=== PATIENT | male | born 1950 | race Caucasian/White ===

== ENCOUNTER 2018-02-12 00:57 | Inpatient (IN) | payer BC, MEDICARE ==
[2018-02-11 15:52] LABS: INR 1.02
[~2018-02-12] VITALS: Ht 188 cm; Wt 80.3 kg
[2018-02-12] VITALS (13 sets, daily range): BP systolic 123–151; BP diastolic 63–91
[~2018-02-12 00:57] MED LIST: KRIL500C2 PO; LACT1CAP6 PO; MULT1CAP59 PO; RUTI1TAB3 PO; TAMS0.4C25 PO
[2018-02-12] MEDS ORDERED: ceFAZolin(*) 2GM/D5W 50ML 50 ML IVPB ONE (08:55)
[2018-02-12] MEDS ORDERED: NORMOSOL R SOLN(*) 1000 ML BAG 1,000 ML IV PRN ×2 (08:55→11:25)
[2018-02-12] MEDS ORDERED: CELECOXIB 200 MG CAP PO ONE (08:55)
[2018-02-12] MEDS ORDERED: FAMOTIDINE 20 MG TAB PO ONE (08:55)
[2018-02-12] MEDS ORDERED: MIDAZOLAM 2 MG/2 ML VIAL IVP PRN (08:55)
[2018-02-12] MEDS ORDERED: ROPIVACAINE 0.2% 400 MG/200ML 250 ML CONINFUS ONE (08:55)
[2018-02-12] MEDS ORDERED: TRANEXAMIC AC 1000 MG/10ML SDV 1,000 MG in DEXTROSE 5% 50 ML BAG 50 ML IV ONE (08:55)
[2018-02-12] MEDS ORDERED: PREGABALIN 150 MG CAPSULE PO ONE (08:55)
[2018-02-12] MEDS ORDERED: ROPIVACAINE/EPI/CLONIDINE/KET 50 ML SYRINGE INJ ONE (08:55)
[2018-02-12] MEDS ORDERED: LIDOCAINE/SOD BICARB 8.4% SYR ID ONE (08:55)
[2018-02-12] MEDS ORDERED: ACETAMINOPHEN 500 MG TAB PO ONE (08:55)
[2018-02-12] MEDS ORDERED: PROPOFOL EMUL(*) 10MG/ML 20 ML 20 ML ONE (09:33)
[2018-02-12] MEDS ORDERED: DEXAMETHASONE SOD PHOS 10MG/ML ONE (09:33)
[2018-02-12] MEDS ORDERED: ONDANSETRON 4 MG/2 ML VIAL ONE (09:33)
[2018-02-12] MEDS ORDERED: ROPIVACAINE 0.2% 20 ML VIAL ONE (09:33)
[2018-02-12] MEDS ORDERED: fentaNYL CITR 100 MCG/2 ML AMP ONE ×2 (09:34→11:28)
[2018-02-12] MEDS ORDERED: HYDROmorphone HCL 2 MG/ML SDV ONE (09:53)
[2018-02-12] MEDS ORDERED: MORPHINE 4 MG/ML SDV IVP PRN (11:25)
[2018-02-12] MEDS ORDERED: MAGNESIUM HYDROXIDE* 30ML UDCP PO PRN (11:25)
[2018-02-12] MEDS ORDERED: ZOLPIDEM TARTRATE 5 MG TAB PO PRN (11:25)
[2018-02-12] MEDS ORDERED: PROMETHAZINE 25 MG/ML 1 ML AMP IVP PRN (11:25)
[2018-02-12] MEDS ORDERED: FLUSH 10 ML SYR IVP PRN (11:25)
[2018-02-12] MEDS ORDERED: BISACODYL 10 MG SUPP PR PRN (11:25)
[2018-02-12] MEDS ORDERED: ONDANSETRON 4 MG/2 ML VIAL IVP PRN (11:25)
[2018-02-12] MEDS ORDERED: traMADol 50 MG TAB PO PRN (11:30)
--- NOTE | 2018-02-12 12:44 | RADIOLOGY IMAGING REPORT ---
[place] [facility] [place] NAME: Bari Juarez : 1950 MR: [id number] V: [id number] EXAM DATE: ORDERING PHYSICIAN: RIVERA CAMARGO TECHNOLOGIST: Location: [facility] [place] Patient: Bari Juarez : 1950 Visit/Account:[id number] Date of Sevice: 02/12/2018 KNEE LIMITED LEFT Indication: Postop left knee replacement Comparison: None available Findings: There are postsurgical changes from three part TKA. Components appear well seated and in neutral pos ition. IMPRESSION: 1. Unremarkable three part left TKA Report Dictated By: William Ayala at 02/12/2018 12:35 PM Report E-Signed By: William Ayaal at 02/12/2018 12:39 PM WSN:KACIE
--- NOTE | 2018-02-12 13:18 | Hospitalist Consultation ---
History of Present Illness Requesting Physician Dr. Hopkins Reason for Consult Medical Management Chief Complaint s/p left knee replacement History of Present Illness He was admitted s/p left knee replacement. It is reported the surgery went well and without complication. History Problems: (1) BPH (benign prostatic hyperplasia) Status: Chronic Home Meds Reported Medications Lactobacillus Combination No.4 (PROBIOTIC) 1 Each Capsule, 1 EACH PO QDAY, CAPSULE 02/07/18 Rutin/Hesp/Bioflav/C/Herb#196 (BIOFLEX TABLET) 1 Each Tablet, 1 EACH PO QDAY 02/07/18 Multivitamin (MULTIVITAMINS) 1 Each Capsule, 1 EACH PO QDAY, CAPSULE 02/07/18 Krill Oil (KRILL OIL) 500 Mg Capsule, 500 MG PO QDAY, CAPSULE 02/07/18 Tamsulosin Hcl (FLOMAX) 0.4 Mg Cap.er.24h, 0.4 MG PO DAILY, CAP 02/05/18 Allergies: Coded Allergies: No Known Drug Allergies (Unverified , 02/05/18) Patient History: FH: MA (myocardial infarction) FATHER, Onset:60 years & older Hx Smoking: Yes Smoking Status: Former Smoker When Quit Tobacco?: 30 YEARS Caffeine Intake: Coffee Caffeine/Cups Per Day: 2/DAY BIG CUPS Hx Alcohol Use: Yes Alcohol Used: Wine, Liquor Hx Substance Use Disorder: Yes (3-4 A YEAR) Social Drug Use: Occasional Social Drugs: Marijuana History of IV Drug Use: No Review of Systems All Systems Reviewed/Normal: Yes, Except as Noted Exam Vital Signs Vital Signs Date Time Temp Pulse Resp B/P (MAP) Pulse Ox O2 Delivery O2 Flow Rate FiO2 02/12/18 12:30 74 12 149/83 (105) 94 Nasal Cannula 2.0 02/12/18 07:47 97.5 General Appearance: Alert, Awake, No Acute Distress, Afebrile Neuro: No Gross deficits Cardiovascular: Regular Rate and Rhythm Respiratory: No Respiratory Distress, Clear to Auscultation GI: Abd Soft and Non-Tender Psych: Alert & Oriented X3, Appropriate Mood & Affect Assessment and Plan Problems: (1) Status post left knee replacement Status: Acute Assessment & Plan: He will be placed on Aspirin 325mg for DVT prophylaxis. (2) BPH (benign prostatic hyperplasia) Status: Chronic Assessment & Plan: He is on chronic treatment with Flomax. Venous Thromboembolism Antithrombotics Is Pt On Any Antithrombotics?: No PEGGY MARTINEZ MALLET AND DIE CUTTER Feb 12, 2018 13:18
[2018-02-12] MEDS: KETOROLAC TROM 10MG TAB PO PRN (13:39)
[2018-02-12] MEDS: ceFAZolin(*) 1 GM VIAL 1 GM in NS(*) 0.9% 100 ML ADDVANT BAG 100 ML IVPB SCH (16:25)
[2018-02-12] MEDS: ACETAMINOPHEN 500 MG TAB PO SCH (16:26)
[2018-02-12] MEDS ORDERED: IBUP-1671 PO (18:36)
[2018-02-13] MEDS: ceFAZolin(*) 1 GM VIAL 1 GM in NS(*) 0.9% 100 ML ADDVANT BAG 100 ML IVPB SCH ×2 (00:25→08:56)
[2018-02-13] MEDS: ACETAMINOPHEN 500 MG TAB PO SCH ×3 (00:25→15:39)
[2018-02-13 03:27] VITALS: BP 138/67
--- NOTE | 2018-02-13 05:16 | OPERATIVE REPORT 1 ---
EVENT DATE: February 12, 2018 SURGEON: Temo Hopkins MD ANESTHESIOLOGIST: Leighton Lopez MD ANESTHESIA: Left adductor block with indwelling catheter, followed by general anesthesia. SCIENCE AND OPERATIONS OFFICER: Avery Russ PA-C PREOPERATIVE DIAGNOSIS Left knee degenerative joint disease with varus alignment. POSTOPERATIVE DIAGNOSIS Left knee degenerative joint disease with varus alignment. PROCEDURE PERFORMED Left total knee arthroplasty. ESTIMATED BLOOD LOSS Less than 200 mL. SPECIMENS None. COMPLICATIONS None. IMPLANTS USED MicroPort medial-pivot CS system with a 6 femur, 6 tibia, 10 mm CS insert, 35/8 symmetric patella, femur cut 6 degrees of valgus, 10 mm. We also utilized two packages of DonJoy cobalt blue cement, ZipLine wound closure system, 50 mL of our standard ropivacaine/Toradol cocktail. DESCRIPTION OF PROCEDURE The patient received appropriate preoperative antibiotic, was brought to the OR, where Dr. Lopez performed adductor block followed by general anesthesia. Left thigh tourniquet placed. Left lower extremity prepped and draped in the usual sterile fashion. Midline incision was made followed by medial parapatellar arthrotomy. We dissected subperiosteally along the medial tibial plateau to the level of the semimembranosus insertion. Fat pad was excised, patella released and everted. The knee was brought out by hyperflexion. We noted grade 3 and 4 changes in the medial compartment. There was eburnation on the tibial plateau with erosion. Patellofemoral compartment showed grade 3 changes, and there were grade 2 and 3 changes in the lateral compartment. Stump of the ACL and PCL released subperiosteally by Bovie after the knee was hyperflexed. We then removed the remaining articular cartilage from the distal femoral condyles. Step-cut drill was utilized to broach the femoral canal. We placed our intramedullary guide, set up our distal cutting block at 6 degrees, 10 mm, and made our distal cut. We then placed our 3-degree external rotation guide and sizer, referencing off the anterior flange, epicondyles and posterior condyles. Holes were drilled for the 3 degrees, and we sized the femur to a #6. A 4-in-1 cutting block was placed, followed by Z-retractor to protect the soft tissues, and we made our four cuts. Tibia was brought anteriorly on the femur with appropriate retractors. Step-cut drill was utilized to broach the tibial canal. Intramedullary guide was placed. We then referenced 10 mm off the least involved lateral tibial plateau, set up for rotation, pinned the block into place, placed retractors and made our cut. We then removed the stump of the ACL and PCL, medial and lateral meniscus by Rajan. Osteophytes were removed by curved osteotome. Capsule was elevated posteriorly with a Sutton elevator. We then placed our trial tibial baseplate, #6, referencing for the previous rotation, and pinned this in place. We placed a 10 mm insert and then our #6 femur. The knee achieved full extension. Flexion was approximately 145 degrees, and he was stable to varus and valgus stress from 0 to 90 degrees. Knee was brought out in full extension. Patella was sized to 25 mm in depth. We placed our 8 mm cutting guide, made our cut. Peg hole guide was positioned inferiorly and medially. Peg hole was drilled, and we placed our trial 35/8 patella. Knee was flexed once again. Peg holes drilled for the femur and placed. Groove cut for the trochlear chip, which was then placed. Again, we had the aforementioned range of motion and stability, and patella tracked well. Patella, femur, and tibial insert were removed, retractors placed. We placed our tibial keel tower, which was then cut, reamed and punched. This instrumentation was removed. Bone plug was placed in the distal femur. Two packages of DonJoy cobalt blue cement were mixed while we copiously irrigated by pulsed lavage and injected 10 mL of our cocktail into the posterior capsule. Knee was brought up in appropriate position. Tibia was cemented into place, followed by our 10 mm insert, then our #6 femur. Excess cement was removed. Knee was brought out in full extension with axial compression while we cemented the patella. We injected the remaining 40 mL of our cocktail in the distal quad mechanism. This was copiously irrigated by pulsed lavage. We then waited for the cement to cure, which took 14 minutes. Again, we had the aforementioned range of motion and stability. Knee placed at 30 degrees. The arthrotomy was closed with #2 Vicryl in [id number] suture fashion, followed by 2-0 Vicryl for subcutaneous tissues. We then placed the knee at 45 degrees, cleaned the wound, applied our ZipLine wound closure system. We then placed a compressive dressing. The patient was extubated and taken to recovery in stable condition. Hospitalist team was consulted for medical management and anticoagulation, PT for rehab. SEGUN
[2018-02-13 07:17] VITALS: BP 134/77
--- NOTE | 2018-02-13 08:23 | Hospitalist Progress Note ---
Subjective Progress Notes Subjective He has no complaints this morning. He had no acute events overnight. Patient Complains of: Cardiovascular: No: Chest Pain Respiratory: No: Shortness of Breath Physical Exam Vital Signs Date Time Temp Pulse Resp B/P (MAP) Pulse Ox O2 Delivery O2 Flow Rate FiO2 02/13/18 07:17 98.4 74 16 134/77 (96) Nasal Cannula 02/13/18 03:27 93 0.5 Intake and Output 02/13/18 06:58 Intake Total 2950 ml Balance 2950 ml Intake Oral 1200 ml IV Total 1750 ml # Voids 4 General Appearance: Alert, Awake, No Acute Distress, Afebrile Neuro: No Gross deficits Cardiovascular: Regular Rate and Rhythm Respiratory: No Respiratory Distress, Clear to Auscultation Psych: Alert & Oriented X3, Appropriate Mood & Affect Assessment and Plan Problems: (1) Status post left knee replacement Status: Acute Assessment & Plan: He will be placed on Aspirin 325mg for DVT prophylaxis. (2) BPH (benign prostatic hyperplasia) Status: Chronic Assessment & Plan: He is on chronic treatment with Flomax. Exam Sepsis Risk: No Definite Risk PEGGY MARTINEZ PROPERTY MANAGEMENT COORDINATOR Feb 13, 2018 08:23
[2018-02-13] MEDS: TAMSULOSIN HCL 0.4 MG CAP PO SCH (08:54)
[2018-02-13] MEDS: oxyCODONE HCL 5 MG CAP PO PRN ×2 (08:55→15:40)
[2018-02-13] MEDS: ASPIRIN 325 MG TAB PO SCH (08:55)
[2018-02-13] MEDS: LACTOBACILLUS ACIDOPHILUS TAB PO SCH (08:55)
[2018-02-13] MEDS: KETOROLAC TROM 10MG TAB PO PRN ×2 (10:20→18:15)
[2018-02-13 11:05] VITALS: BP 151/77
[2018-02-13 13:17] VITALS: Ht 188 cm; Wt 80.3 kg
[2018-02-13 15:50] VITALS: BP 172/93
[2018-02-13 18:44] VITALS: BP 148/96
[2018-02-13 23:57] VITALS: BP 149/75
[2018-02-14 03:40] VITALS: BP 140/85
[2018-02-14] MEDS: oxyCODONE HCL 5 MG CAP PO PRN (07:43)
[2018-02-14] MEDS: ACETAMINOPHEN 500 MG TAB PO SCH ×2 (07:43)
[2018-02-14 07:46] VITALS: BP 154/88
[2018-02-14] MEDS ORDERED: ASPI-757 PO (07:56)
[2018-02-14 08:00] VITALS: BP 145/79
[2018-02-14] MEDS: ASPIRIN 325 MG TAB PO SCH (09:12)
[2018-02-14] MEDS: TAMSULOSIN HCL 0.4 MG CAP PO SCH (09:12)
[2018-02-14] MEDS: LACTOBACILLUS ACIDOPHILUS TAB PO SCH (09:12)
--- NOTE | 2018-02-14 11:03 | Hospitalist Progress Note ---
Subjective Progress Notes Subjective He has no complaints this morning. He had no acute events overnight. He would like to go home today. Patient Complains of: Cardiovascular: No: Chest Pain Respiratory: No: Shortness of Breath Physical Exam Vital Signs Date Time Temp Pulse Resp B/P (MAP) Pulse Ox O2 Delivery O2 Flow Rate FiO2 02/14/18 08:00 97.9 85 14 145/79 (101) 95 Room Air 02/14/18 03:40 0.5 Intake and Output 02/13/18 23:58 Intake Total 2140 ml Balance 2140 ml Intake Oral 1940 ml IV Total 200 ml # Voids 4 # Bowel Movements 1 General Appearance: Alert, Awake, No Acute Distress, Afebrile Neuro: No Gross deficits Cardiovascular: Regular Rate and Rhythm Respiratory: No Respiratory Distress, Clear to Auscultation Psych: Alert & Oriented X3, Appropriate Mood & Affect Assessment and Plan Problems: (1) Status post left knee replacement Status: Acute Assessment & Plan: He will be placed on Aspirin 325mg for DVT prophylaxis. (2) BPH (benign prostatic hyperplasia) Status: Chronic Assessment & Plan: He is on chronic treatment with Flomax. Exam Sepsis Risk: No Definite Risk PEGGY MARTINEZ ANCILLARY SERVICES MANAGER THERAPY Feb 14, 2018 11:03
[2018-02-14] MEDS: KETOROLAC TROM 10MG TAB PO PRN (11:36)
--- NOTE | 2018-02-14 13:52 | DISCHARGE SUMMARY ---
DATE OF ADMISSION: February 12, 2018 DATE OF DISCHARGE: February 14, 2018 HISTORY A 59-year-old male admitted to Day Surgery and underwent left total knee arthroplasty without complication. Postoperatively, the hospitalist team was consulted medical management and anticoagulation, PT for rehab. He progressed in a very satisfactory manner. On date of discharge, wounds are clean, dry, and intact. He is neurovascularly intact, and pain was easily controlled. He will have outpatient physical therapy and home CPM. Clearance is required by PT and hospitalist team prior to discharge. FOLLOWUP We will follow him up next week in our [facility]. DISCHARGE MEDICATIONS 1. Toradol. 2. Tramadol. 3. OxyIR prescribed for pain. PREOPERATIVE DIAGNOSIS Left knee degenerative joint disease. PRINCIPLE PROCEDURE Left total knee arthroplasty. SEGUN
== END 2018-02-14 12:30 | disposition home or self-care (01) | DRG 470 ==
LOC: OR 00:57 → OBSVTOIN 12:25 → MED 12:25
PROVIDERS: ADMIT Orthopaedic Surgery; ATTEND Orthopaedic Surgery
PROC: 0SRD0J9 Replacement of Left Knee Joint with Synthetic Substitute, Cemented, Open Approach (ICD-10-PCS; principal; 2018-02-12 09:17)
DX: M17.12 Unilateral primary osteoarthritis, left knee (principal); M21.162 Varus deformity, not elsewhere classified, left knee; K21.9 Gastro-esophageal reflux disease without esophagitis; N40.0 Benign prostatic hyperplasia without lower urinary tract symptoms; Z87.891 Personal history of nicotine dependence
CPT/HCPCS: 36415; 76942; 85610; 86850; 86900; 86901; 97161; C1713; C1776; J0690; J1100; J1170; J2250; J2270; J2405; J2704; J2795; J3010; J7050; J7060